=== PATIENT | female | born 1990 | race Caucasian/White ===

== ENCOUNTER 2018-06-20 03:13 | Inpatient (IN) | payer BC, SELFPAY ==
[2018-06-20] MEDS ORDERED: Bupivacaine 0.5% 20 ML, fentaNYL Citrate/PF 400 MCG in Sodium Chloride 0.9% 72 ML EPIDURAL SCH (03:45)
[2018-06-20] MEDS ORDERED: DISCONTINUE ALL PREVIOUS NARCOTICS FS SCH (03:45)
[2018-06-20] MEDS ORDERED: Promethazine HCl 25 MG/ML VIAL IM PRN ×3 (03:56→12:53)
[2018-06-20] MEDS ORDERED: Ondansetron HCl/PF 4 MG/2 ML Vial IVP PRN ×4 (03:56→12:54)
[2018-06-20] MEDS ORDERED: Acetaminophen 500 MG TAB PO PRN (03:56)
[2018-06-20] MEDS ORDERED: Misoprostol 200 MCG TAB RC PRN (04:00)
[2018-06-20] MEDS ORDERED: Carboprost 250 MCG/ML AMP IM PRN (04:00)
[2018-06-20] MEDS ORDERED: NS w/ Oxytocin 10 units 500 ML IV SCH ×2 (04:00)
[2018-06-20] MEDS ORDERED: NS / Oxytocin 40 units/1000ml 1,000 ML IV SCH (04:00)
[2018-06-20] MEDS ORDERED: Lidocaine 1% (PF) 30 ML VIAL SC PRN (04:00)
[2018-06-20] MEDS ORDERED: Ibuprofen 800 MG TAB PO PRN ×2 (04:00→13:12)
[2018-06-20] MEDS ORDERED: Penicillin G Potassium 5 MILL.UNITS in Sodium Chloride 0.9% 100 ML IVPB SCH (04:00)
[2018-06-20] MEDS ORDERED: Methylergonovine 0.2 MG/ML VIAL IM PRN (04:00)
[2018-06-20 04:17] VITALS: BMI 29.6
[2018-06-20] MEDS: Lactated Ringer's 1,000 ML IV SCH ×2 (04:30→12:02)
[2018-06-20 04:45] LABS: Hemoglobin 12.6 g/dL (12.0-16.0); Mean Corpuscular Hemoglobin 31.9 pg (27.0-31.0); Mean Platelet Volume 7.9 fL (7.4-10.4); Platelet Count 240 thou/uL (130-400); RBC Distribution Width 12.1 % (11.5-14.5); Red Blood Cell (RBC) Count 3.93 mill/uL (4.20-5.40); White Blood Cell (WBC) Count 18.1 thou/uL (4.8-10.8)
[2018-06-20 05:14] LABS: HBSAg Index 0.16 S/CO (0-0.99); Hep B Surf Ag Non-Reactive S/CO (NonReactive)
[2018-06-20] MEDS ORDERED: Terbutaline Sulfate 1 MG/ML VIAL ONE (05:39)
[2018-06-20] MEDS ORDERED: Lactated Ringer's 500 ML IV PRN (05:42)
[2018-06-20] MEDS ORDERED: Eucerin (Mineral Oil/Petrolatum,White) 30 gm Jar TOP PRN ×2 (05:42→12:53)
[2018-06-20] MEDS ORDERED: ePHEDrine/0.9% NaCl/PF SYRINGE 50 mg/10 ml SLOW IVP PRN (05:42)
[2018-06-20] MEDS ORDERED: Naloxone HCl 0.4 mg/ml Vial IVP PRN ×4 (05:42→12:53)
[2018-06-20] MEDS ORDERED: diphenhydrAMINE 50 MG/ML VIAL IVP PRN ×2 (05:42→12:53)
[2018-06-20] MEDS ORDERED: Acetaminophen 325 MG TAB PO PRN ×2 (05:42→14:00)
[2018-06-20] MEDS ORDERED: Communication Order-Pharmacy FS SCH ×2 (05:45→13:00)
[2018-06-20] MEDS ORDERED: fentaNYL Citrate/PF 400 MCG, Bupivacaine 0.5% 20 ML in Sodium Chloride 0.9% 72 ML EPIDURAL SCH (05:45)
[2018-06-20] MEDS: Penicillin G 2.5 MILL.units 50 ML IVPB SCH ×2 (08:44→16:05)
[2018-06-20] MEDS ORDERED: NS / Oxytocin 40 units/1000ml 1,000 ML ONE (09:36)
[2018-06-20] MEDS ORDERED: Lidocaine 2% PF 5 ML VIAL ONE (11:11)
[2018-06-20] MEDS ORDERED: Bupivacaine PF 0.5% 30 ML VIAL ONE (11:11)
--- NOTE | 2018-06-20 11:34 | PDOC.EVN ---
Event Note - Event Note Event Note: AROM with FSE at 1040. Clear fluid. Baby tolerated well. FSE placed. IUPC placed without difficulty. FWB reassuring at this time, no further decelerations seen. Case discussed with Dr. Loera, OB hospitalist. Given the current tracing and contraction pattern we will try low dose augmentation with pitocin and see how baby tolerates that. Right now, CTX are 10-15 minutes apart but lasting 3-4 minutes each. The hope with pitocin is that we will achieve a better pattern and have more effective cervical change. FHT tracing is category II at this time. Continue internal monitors.
[2018-06-20] MEDS ORDERED: CEFAZOLIN/Water 2 GM/20 ML SYRINGE ONE (11:55)
[2018-06-20] MEDS ORDERED: Bicitra 30 ML UDCUP ONE (11:55)
--- NOTE | 2018-06-20 12:05 | PDOC.EVN ---
Event Note - Event Note Event Note: PREOP CS NOTE DICTATED SX: Non-reassuring FHR tracing (Cat 3). For Primary CS
[2018-06-20] MEDS ORDERED: Lidocaine 2% PF Inj 2 ML VIAL ONE ×5 (12:09→12:12)
[2018-06-20] MEDS ORDERED: Lidocaine 1% PF 5 ML VIAL ONE (12:11)
[2018-06-20] MEDS ORDERED: Bupivacaine 0.5% 10 ML VIAL ONE (12:13)
[2018-06-20] MEDS ORDERED: NIFEdipine 10 MG CAP ONE (12:13)
[2018-06-20] MEDS ORDERED: Ondansetron HCl/PF 4 MG/2 ML Vial ONE ×2 (12:17→15:15)
--- NOTE | 2018-06-20 12:20 | PRG ---
DATE OF SERVICE: 06/20/2018 TIME OF EVALUATION: 11:50-12:00 noon. PREOPERATIVE NOTE: In brief, I have been watching this patient's electronic monitor along with Dr. Gordo rowell ce about 10:30 this morning. This patient is now at 8 cm dilation/100 percent effacement/about -1 to 0 station. She was called 6 cm at about 5:30 this morning. This patient is a patient of Dr. Jameson. At about 10:30 this morning, me and Dr. Jameson evaluated the patient strip together and we found a tess nge from moderate variability to periods of minimum variability with the possibility of some late occ urring decelerations. However, she was not adequately simba and after discussion with Dr. Jameson , my plan of care included placing a scalp electrode and IUPC to better track of contraction pa ttern to see the relationship to the decelerations. This was done at around 10:30 or so this m soumya. Since that time, due to the patient's continued lack of contractions, Pitocin was begun. Pi tocin also function as a contraction stress test to see if the baby could tolerate further labor prog ress. We have now concluded that there is recurrent late deceleration and there is intol erance to contractions. I have diagnosed nonreassuring heart rate due to a category 2, progres sing to a category 3 strip (minimal variability with late decelerations). I have discussed this with the patient, her partner, and Dr. Jameson all at the patient's bedside. All questions were answered. The patient has a labor epidural in place. Anesthesia has been notified and we are planning on a C-s ection within the next 15 minutes. We have also ordered Pitocin to stop and are giving IV hydration as a fluid bolus.
[2018-06-20] MEDS ORDERED: Azithromycin 500 MG in Sodium Chloride 0.9% 250 ML 250 ML IVPB SCH (12:30)
[2018-06-20] MEDS ORDERED: Oxytocin 10 UNITS/ML VIAL ONE (12:30)
[2018-06-20] MEDS ORDERED: Morphine PF 1 MG/ML SYR ONE (12:31)
[2018-06-20] MEDS ORDERED: Ketorolac Tromethamine 30 MG/ML VIAL IVP PRN (12:53)
[2018-06-20] MEDS ORDERED: Naloxone HCl 0.4 mg/ml Vial IV PRN (12:53)
[2018-06-20] MEDS ORDERED: Promethazine HCl 25 MG SUPP PR PRN (12:53)
[2018-06-20] MEDS ORDERED: HYDROmorphone 2 MG/ML VIAL SLOW IVP PRN (12:54)
[2018-06-20] MEDS ORDERED: Ketorolac Tromethamine 30 MG/ML VIAL IVP SCH (13:00)
[2018-06-20] MEDS ORDERED: Fentanyl 100 MCG/2 ML VIAL ONE (13:13)
[2018-06-20 13:15] LABS: Actual Bicarbonate (HCO3a) 24.7 mEq/L (22-28); Analyzer IN Cardio OR; Base Excess (BEa) -0.4 mEq/L (-2.0 to +3.0)
[2018-06-20] MEDS ORDERED: Ketorolac Tromethamine 30 MG/ML VIAL ONE ×2 (13:19→15:15)
--- NOTE | 2018-06-20 13:20 | PDOC.EVN ---
Event Note - Event Note Event Note: Postop Umbilical arterial Gas check: no evidence metabolic acidosis, BE -.4, PH >7.2
--- NOTE | 2018-06-20 13:49 | OP ---
DATE OF PROCEDURE: 06/20/2018 TIME OF SURGERY: Was roughly around 12:40 (see delivery record for true delivery time). SECTION NOTE PREOPERATIVE DIAGNOSIS: Non-reassuring heart rate tracing with class 3 strip at 8 cm. POSTOPERATIVE DIAGNOSES: 1. Non-reassuring heart rate tracing with class 3 strip at 8 cm. 2. Status post low-transverse -section. PROCEDURE: Primary low-transverse section via Pfannenstiel skin incision. Uterus was closed in a 2-layer closure. SURGEON: Shaun Loera M.D. ICT CUSTOMER SUPPORT OFFICER: Gordo Jameson M.D. ANESTHESIA: Labor epidural and local infiltration at the time of skin closure. ANTIBIOTICS: Ancef per routine and 500 mg Zithromax. FINDINGS: 1. Baby was born in the cephalic presentation with spontaneous cry. 2. Body cord x1 that was loose. 3. Three-vessel cord. 4. Baby had spontaneous cry at delivery with good tone, but then had difficulty maintaining saturations during the period of observation with Neonatology in the room. 5. Hemostasis post-procedure. 6. Normal tubes and ovaries bilaterally. 7. The umbilical arterial gas was greater than 7.2 with a base excess of less than -1 with the results coming at the end of the surgery. ESTIMATED BLOOD LOSS: My estimated blood loss was about 600, the quantitative blood loss is still pending. COUNTS: Correct. COMPLICATIONS: None. IV FLUIDS: Per Anesthesia record (crystalloid). URINE OUTPUT: (Please see anesthesia record). DISPOSITION: To recovery room in good and stable condition. INDICATION: This is a patient that we have been observing the labor progress and found persistent non-reassuring heart rate tracing with heart rate of around 130s-140s, but with minimal variability and late decelerations. TECHNIQUE: After proper informed consent was explained to the patient, she was transported to the Labor and Delivery operating room where she was dosed of her labor epidural anesthetic. Patient's abdomen was prepped and draped in the usual sterile fashion. A Pfannenstiel skin incision was made about 2 fingerbreadths above the pubic symphysis. Bovie cautery was used to dissect the subcutaneous tissue down to the level of the fascia. Fascia was identified , cleaned off of any overlying fat, and entered in a transverse fashion. Next, rectus muscles were off the fascia, both superiorly and inferiorly off the midline, with Vivar scissors. Care was taken to avoid the underlying structures. Next, the rectus muscles were out laterally from the midline and the underlying peritoneum was elevated with hemostats. The peritoneum was entered by blunt dissection without damage to the underlying structures. An Graeme O retractor was placed into the wound for circumferential retraction. A low transverse hysterotomy was made that is without creation of a bladder flap. Baby was noted to be in a cephalic presentation and was delivered in an atraumatic fashion without difficulty. One body cord was noted, which was loose. The baby was given a delayed cord clamp of about 30 seconds, at which point the cord was doubly clamped, transected, and the baby was given to the NICU team present for evaluation. The placenta was gently massaged out of the uterine cavity and it was intact. The uterine cavity was curettaged of any retained products of conception and none were found. The uterus was closed in 2 layers, using #1 Vicryl in a running-locking fashion with the first layer and a running nonlocking fashion with a second imbricating layer. After confirming hemostasis, copious irrigation was then performed verifying hemostasis. The parietal peritoneum and rectus muscles were then reapproximated in the midline using 2-0 chromic, after confirming that all counts were correct. This was with a series of figure -of-eight loose stitches. After confirming that there was hemostasis underneath the fascial edge, the fascial edge was closed with 0 PDS suture in one continuous running nonlocking fashion. Subcutaneous tissue was copiously irrigated, and as it was less than 2 cm, the subcutaneous tissue was not closed. The subcuticular area was closed with 4-0 Monocryl in a running subcuticular stitch. Dermabond was placed over the skin for an adhesive barrier placement. No complications were found, and at the end of the procedure about 10 mL of 0.5 % Marcaine without epinephrine was placed around the incision for patient comfort. DAVID
[2018-06-20] MEDS ORDERED: Bisacodyl 10 MG SUPP PR PRN (14:00)
[2018-06-20] MEDS ORDERED: diphenhydrAMINE 25 MG CAP PO PRN (14:00)
[2018-06-20] MEDS ORDERED: Lanolin Ointment 7 GM TUBE TOP PRN (14:00)
[2018-06-20] MEDS ORDERED: Meperidine HCl/PF 25 MG/ML VIAL ONE ×2 (14:31→15:19)
[2018-06-20] MEDS: Meperidine HCl/PF 25 MG/ML VIAL SLOW IVP PRN ×2 (14:35→15:22)
[2018-06-20] MEDS ORDERED: Lidocaine 2% MPF 10 ML AMP (For Epidural Use) ONE (15:15)
[2018-06-20] MEDS: Ibuprofen 800 MG TAB PO SCH ×2 (16:05→21:43)
[2018-06-20] MEDS: Docusate Calcium (SURFAK) 240 MG CAP PO SCH (20:26)
[2018-06-21] MEDS ORDERED: HYDROcodone/Acetaminophen 5/325 mg Tablet PO PRN (01:00)
[2018-06-21] MEDS: Simethicone Chewable 80 MG TAB PO PRN (04:28)
[2018-06-21 05:45] LABS: Hemoglobin 9.7 g/dL (12.0-16.0); Mean Corpuscular HGB CONC 33.1 g/dL (32.0-36.0); Mean Corpuscular Hemoglobin 31.4 pg (27.0-31.0); Mean Corpuscular Volume 94.9 fL (78.0-98.0); Platelet Count 203 thou/uL (130-400); RBC Distribution Width 11.9 % (11.5-14.5); White Blood Cell (WBC) Count 13.3 thou/uL (4.8-10.8)
[2018-06-21] MEDS: Ibuprofen 800 MG TAB PO SCH ×3 (07:33→21:21)
[2018-06-21] MEDS: Docusate Calcium (SURFAK) 240 MG CAP PO SCH ×2 (07:34→20:20)
--- NOTE | 2018-06-21 09:00 | PDOC.PP ---
Post Progress Note Post Day #: 1 Subjective: Pain controlled. Monroy out this AM. Voided. Tolerated clear liquids, no solids yet. for the first time this AM. PO intake tolerated: yes Flatus: yes Ambulation: yes Vital Signs (12 hours) Temp Pulse Resp BP 06/21/18 07:40 98.2 F 80 18 124/77 06/21/18 04:00 98.3 F 76 20 120/84 06/21/18 00:00 98.3 F 85 20 126/71 Weight Weight 162 lb - Physical Examination General: NAD Cardiovascular: no m/r/g, RRR Respiratory: clear to auscultation bilaterally, non-labored breathing Abdominal: + bowel sounds, lochia, no distention, appropriately TTP Skin: CS incision dry & intact, no rash Psychiatric: A&Ox3, normal affect Result Diagrams: 06/21/18 05:15 Additional Labs: Post Labs Blood Type O POSITIVE 06/20/18 04:14 Hep Bs Antigen Non-Reactive S/CO (NonReactive) 06/20/18 04:01 (1) delivery delivered Code(s): O82 - ENCOUNTER FOR DELIVERY WITHOUT INDICATION Status: Acute - Assessment/Plan Routine post op care. Doing well on PP day #1. Ambulate. Pain control. Work on .
[2018-06-21] MEDS: HYDROcodone/Acetaminophen 5/325 mg Tablet PO PRN ×2 (14:51→20:21)
[2018-06-22] MEDS: HYDROcodone/Acetaminophen 5/325 mg Tablet PO PRN ×6 (00:18→22:51)
[2018-06-22] MEDS: Simethicone Chewable 80 MG TAB PO PRN (00:18)
[2018-06-22] MEDS: Ibuprofen 800 MG TAB PO SCH ×3 (05:53→22:14)
[2018-06-22] MEDS: Docusate Calcium (SURFAK) 240 MG CAP PO SCH ×2 (08:35→20:50)
--- NOTE | 2018-06-22 13:14 | PDOC.PP ---
Post Progress Note Post Day #: 2 Subjective: Pain controlled. Ambulating. well. PO intake tolerated: yes Flatus: yes Ambulation: yes Vital Signs (12 hours) Temp Pulse Resp BP 06/22/18 12:00 97.9 F 73 18 06/22/18 11:59 97.9 F 73 18 132/77 06/22/18 07:30 97.8 F 74 18 112/75 06/22/18 04:00 98.0 F 75 20 122/77 Weight Weight 162 lb - Physical Examination General: NAD Cardiovascular: no m/r/g, RRR Respiratory: clear to auscultation bilaterally, non-labored breathing Abdominal: + bowel sounds, lochia, no distention, appropriately TTP Skin: CS incision dry & intact, no rash Psychiatric: A&Ox3, normal affect Result Diagrams: 06/21/18 05:15 Additional Labs: Post Labs Blood Type O POSITIVE 06/20/18 04:14 Hep Bs Antigen Non-Reactive S/CO (NonReactive) 06/20/18 04:01 (1) delivery delivered Code(s): O82 - ENCOUNTER FOR DELIVERY WITHOUT INDICATION Status: Acute - Assessment/Plan Routine PP care D/C in AM
[2018-06-23] MEDS: Ibuprofen 800 MG TAB PO SCH (05:30)
[2018-06-23] MEDS: HYDROcodone/Acetaminophen 5/325 mg Tablet PO PRN ×2 (06:18→12:20)
[2018-06-23 07:48] VITALS: BP 124/78; TEMP 97.2
[2018-06-23] MEDS: Docusate Calcium (SURFAK) 240 MG CAP PO SCH (09:02)
--- NOTE | 2018-06-23 11:35 | PDOC.PP ---
Post Progress Note Post Day #: 3 Subjective: Doing well, ready to go home PO intake tolerated: yes Flatus: yes Ambulation: yes Vital Signs (12 hours) Temp Pulse Resp BP 06/23/18 08:15 97.2 F L 76 20 06/23/18 07:47 97.2 F L 76 20 124/78 06/23/18 04:00 98.0 F 91 18 06/22/18 23:40 98.0 F 91 18 Weight Weight 162 lb - Physical Examination General: NAD Cardiovascular: no m/r/g, RRR Respiratory: clear to auscultation bilaterally, non-labored breathing Abdominal: + bowel sounds, lochia, no distention, appropriately TTP Skin: CS incision dry & intact, no rash Psychiatric: A&Ox3, normal affect Result Diagrams: 06/21/18 05:15 Additional Labs: Post Labs Blood Type O POSITIVE 06/20/18 04:14 Hep Bs Antigen Non-Reactive S/CO (NonReactive) 06/20/18 04:01 (1) delivery delivered Code(s): O82 - ENCOUNTER FOR DELIVERY WITHOUT INDICATION Status: Acute - Assessment/Plan Routine PP care D/C home F/U in 2 weeks
== END 2018-06-23 12:30 | disposition home or self-care (01) | DRG 766 ==
LOC: L&D/OP 03:13 → L&D 03:45 → 3SW 16:45
PROVIDERS: ADMIT Family Medicine; ATTEND Family Medicine
PROC: 10D00Z1 Extraction of Products of Conception, Low, Open Approach (ICD-10-PCS; principal; 2018-06-20)
DX: O76 Abnormality in fetal heart rate and rhythm complicating labor and delivery (principal); Z37.0 Single live birth; Z3A.39 39 weeks gestation of pregnancy
CPT/HCPCS: 36415; 51702; 82805; 85027; 86850; 86900; 86901; 87340; 88307; 99283; 99285; J0456; J1885; J2001; J2175; J2274; J2405; J2540; J2590; J3010; J3105; J3490; J7050; S0020

== ENCOUNTER 2020-09-30 15:10 | Inpatient (IN) | payer BC ==
[~2020-09-30 15:10] MED LIST: Bupivacaine/Epinephrine 0.25% 30 ML VIAL ONE
[2020-09-30 15:42] VITALS: BMI 28.3
[2020-09-30] MEDS ORDERED: Ibuprofen 800 MG TAB PO PRN (15:55)
[2020-09-30] MEDS ORDERED: NS / Oxytocin 40 units/1000ml 1,000 ML IV PRN (15:55)
[2020-09-30] MEDS ORDERED: Lidocaine 1% (PF) 30 ML VIAL SC PRN (15:55)
[2020-09-30] MEDS ORDERED: Butorphanol Tartrate 1 MG/ML VIAL SLOW IVP PRN (15:55)
[2020-09-30] MEDS ORDERED: Acetaminophen 500 MG TAB PO PRN (15:55)
[2020-09-30] MEDS ORDERED: Docusate 100 MG CAP PO PRN (15:55)
[2020-09-30] MEDS ORDERED: Ondansetron PF 4 MG/2 ML Vial IVP PRN (15:55)
[2020-09-30] MEDS ORDERED: Promethazine HCl 25 MG/ML VIAL IM PRN (15:55)
[2020-09-30] MEDS ORDERED: hydrALAZINE 20 MG/ML VIAL SLOW IVP PRN (15:55)
[2020-09-30 16:31] LABS: Hemoglobin 12.7 g/dL (12.0-16.0); Mean Corpuscular HGB CONC 34.9 g/dL (32.0-36.0); Mean Corpuscular Hemoglobin 32.9 pg (27.0-31.0); Mean Corpuscular Volume 94.3 fL (78.0-98.0); Mean Platelet Volume 8.7 fL (7.4-10.4); Platelet Count 243 thou/uL (130-400); RBC Distribution Width 11.6 % (11.5-14.5); Red Blood Cell (RBC) Count 3.86 mill/uL (4.20-5.40); White Blood Cell (WBC) Count 10.7 thou/uL (4.8-10.8)
--- NOTE | 2020-09-30 16:32 | PDOC.LDHP ---
Labor and Delivery H&P Chief complaint: loss of fluid HPI: 29 y/o at 39w4d, patient of Dr. Boland, presents after rupture at 0300 this am. 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 Denies VB, PIH sx, or UTI sx. +FM ROS neg for HEENT, CV, pulm, GI, , neuro, psych, skin, musculoskeletal, or constitutional symptoms other than mentioned above. OB History Details: 1 prior LTCS x 1 for [facility]RA Past Medical History: Anxiety Current medications: pre- vitamins, other (zoloft, allergy medication) Previous surgical history: low tranverse CS (x1) Allergies/Adverse Reactions: Allergies Allergy/AdvReac Type Severity Reaction Status Date / Time banana Allergy Verified 09/30/20 15:43 latex Allergy Hives Verified 09/30/20 15:43 melon Allergy Verified 09/30/20 15:43 Social history: none - Physical Exam Vital signs reviewed and normal: yes General: NAD, resting Lungs: nonlabored breathing Abdomen: gravid Extremeties: no edema FHT: category 1 (130s, mod variability, + accels, no decels) [place] contractions every: 6-8 mins - Vaginal Exam cm dilated: 2 Effacement: 50% Station: -2 - OB Labs Blood type: O RH: positive Antibody Screen: negative HIV: negative RPR: negative HEPSAg: negative 1 hour GCT: negative GBS: negative Rubella: immune - Assessment L&D Assessment: term rupture in membranes - Plan Plan: admit to L&D, cervical ripening, informed consent obtained -: Pt desires balloon over medication for cervical ripening. Will place once admitted.
[2020-09-30 17:08] LABS: Syphilis Antibody Nonreactive (Nonreactive); Syphilis Antibody Index 0.02 S/CO (<1.00 Non-Reactive)
--- NOTE | 2020-09-30 17:09 | PDOC.LDPN ---
Labor & Delivery Progress Note - Subjective Subjective: comfortable - Objective Vital signs reviewed and normal: yes General: NAD, resting Uterine fundus: non tender Dilation: 2 Effacement: 50% Station: -2 FHT: category 1 [place] contractions every: 6-8 mins -: Cook's balloon placed without difficulty. Inflated to 40/40, will increase incrementally.
[2020-09-30 17:17] LABS: HBSAg Index 0.13 S/CO (0-0.99); Hep B Surf Ag Non-Reactive S/CO (NonReactive)
[2020-09-30] MEDS: Lactated Ringer's 1,000 ML IV SCH (17:35)
[2020-10-01 00:04] LABS: SARS-CoV-2 MS2 Positive; SARS-CoV-2 N Gene Negative; SARS-CoV-2 S Gene Negative; SARS-CoV-2 by NAA Not Detected (NotDetected); SARS-CoV-2 orf1ab Negative
[2020-10-01] MEDS ORDERED: Fentanyl 4 mcg/Bup 0.1% Cadd 100 ML in Premix Bag 1 BAG EPIDURAL SCH (03:00)
[2020-10-01] MEDS ORDERED: Lactated Ringer's 500 ML IV PRN (03:45)
[2020-10-01] MEDS ORDERED: Promethazine HCl 25 MG/ML VIAL IM PRN ×2 (03:45→09:45)
[2020-10-01] MEDS ORDERED: ePHEDrine 50 MG/ML VIAL SLOW IVP PRN (03:45)
[2020-10-01] MEDS ORDERED: Communication Order-Pharmacy FS SCH ×2 (03:45→09:45)
[2020-10-01] MEDS ORDERED: Naloxone HCl 0.4 mg/ml Vial IVP PRN ×4 (03:45→09:45)
[2020-10-01] MEDS ORDERED: Fentanyl 4 mcg/Bupivacaine 0.1% Cassette 100 ML EPIDURAL SCH (03:45)
[2020-10-01] MEDS ORDERED: Ondansetron PF 4 MG/2 ML Vial IVP PRN ×2 (03:45→09:45)
[2020-10-01] MEDS ORDERED: Acetaminophen 325 MG TAB PO PRN ×2 (03:45→13:22)
[2020-10-01] MEDS ORDERED: diphenhydrAMINE 50 MG/ML VIAL IVP PRN ×2 (03:45→09:45)
[2020-10-01] MEDS: Lactated Ringer's 1,000 ML IV SCH ×2 (03:56→19:21)
--- NOTE | 2020-10-01 07:58 | PDOC.LDPN ---
Labor & Delivery Progress Note - Subjective Subjective: comfortable - Objective Vital signs reviewed and normal: yes General: resting Dilation: 6 Effacement: 90% Station: -1 FHT: late decelerations, variability present [place] contractions every: 7-9 IUPC placed: yes - Assessment (1) 39 weeks gestation of Code(s): Z3A.39 - 39 WEEKS GESTATION OF Current Visit: Yes Status: Acute (2) Prolonged rupture of membranes Code(s): O42.90 - CHRISTOPHER ROM, 7TH0 BETW RUPT & ONST LABR, UNSP WEEKS OF GEST Current Visit: Yes Status: Acute Plan: other -: At patient bedside, SVE w exam consistent w active laboring cervix. CTX are q 7-9 mins, IUP placed to confirm frequency and power. FHT w recurrent lates suspected prior to IUPC placed-reassuring between ctx. Will observe w IUPC and if lates continue (cannot augment labor) will plan for RCS. Pt and aware of plan of care.
[2020-10-01] MEDS ORDERED: NS w/ Oxytocin 30 units 500 ML ONE (08:07)
[2020-10-01] MEDS ORDERED: Bicitra 30 ML UDCUP ONE (08:18)
[2020-10-01] MEDS ORDERED: Azithromycin 500 MG VIAL ONE (08:42)
[2020-10-01] MEDS ORDERED: Oxytocin 10 UNITS/ML VIAL ONE (08:52)
[2020-10-01] MEDS ORDERED: Morphine PF 10 MG/10 ML VIAL ONE (08:52)
[2020-10-01] MEDS ORDERED: PHENYLEPHRINE-NS 100 MCG/ML 10 ML SYRINGE ONE (09:19)
[2020-10-01] MEDS ORDERED: Midazolam HCl 2 mg/2 ml Vial ONE (09:30)
[2020-10-01] MEDS ORDERED: Meperidine HCl/PF 25 MG/ML VIAL SLOW IVP PRN (09:45)
[2020-10-01] MEDS ORDERED: Ketorolac Tromethamine 30 MG/ML VIAL IVP SCH (09:45)
[2020-10-01] MEDS ORDERED: L&D-Morphine 4 MG/ML VIAL SLOW IVP PRN (09:45)
[2020-10-01] MEDS ORDERED: Ondansetron HCl/PF 4 MG/2 ML Vial IVP PRN (09:45)
[2020-10-01] MEDS ORDERED: Ketorolac Tromethamine 30 MG/ML VIAL IVP PRN (09:45)
[2020-10-01] MEDS ORDERED: Azithromycin 500 MG in Sodium Chloride 0.9% 250 ML 250 ML IVPB SCH (09:45)
[2020-10-01] MEDS ORDERED: Naloxone HCl 0.4 mg/ml Vial IV PRN (09:45)
[2020-10-01] MEDS ORDERED: HYDROmorphone 2 MG/ML VIAL SLOW IVP PRN (09:45)
[2020-10-01] MEDS ORDERED: Promethazine HCl 25 MG SUPP PR PRN (09:45)
[2020-10-01] MEDS ORDERED: Ondansetron PF 4 MG/2 ML Vial ONE (10:16)
--- NOTE | 2020-10-01 10:37 | OP ---
DATE OF PROCEDURE: 10/01/2020 PREOPERATIVE DIAGNOSES: 1. Previous section. 2. 6 cm with non-reassuring heart tones. POSTOPERATIVE DIAGNOSES: 1. Previous section. 2. 6 cm with non-reassuring heart tones. PROCEDURE PERFORMED: Repeat low-transverse section. ACCOUNT AUDITOR: Lee Ann Puga, guardian family member. ANESTHESIA: Epidural. COMPLICATIONS: None. ESTIMATED BLOOD LOSS: 600 mL. QUANTITATIVE BLOOD LOSS: Pending. OPERATIVE FINDINGS: 1. Low-transverse hysterotomy without extension. 2. Normal-appearing uterus, tubes, and ovaries bilaterally. 3. Vigorous female infant at the bed with Apgars and weight pending at the time of dictation, transferred to NICU for care. 4. Fundus firm after delivery of the placenta. 5. Surgical sites hemostatic. INDICATIONS: Ms. Ana Lugo presented on 09/30/2020 with rupture of membranes in latent labor. She was managed under the OB hospitalist service, at which time a Cook balloon was placed. This morning, when I assumed her care at approximately 7:30, she had been noted to have very irregular contractions every 7 to 10 minutes and late decelerations with most contractions, but moderate variability. At that time, the patient was counseled, resuscitative measures were performed and decision for section was made. DESCRIPTION OF PROCEDURE: The patient was then taken back to the OR with IV fluids running. Once she was in the OR, she was placed in dorsal supine position. A Monroy catheter and epidural catheter were previously placed. The abdomen was prepped and draped in normal fashion for section. 2 g of Ancef and 500 mg of azithromycin were administered through her IV. A Pfannenstiel skin incision was made with a scalpel. The skin incision was carried down through subcutaneous layer to the fascia. Once the fascia was reached, it was incised in the midline and extended superolaterally using curved Vivar scissors. Vivian clamps were placed at the superior border of the fascia, which was sharply and bluntly dissected off the rectus abdominis muscles. In similar fashion, they were placed at the inferior border of the fascia, which was dissected down towards the pubic symphysis. The rectus muscles and peritoneum were bluntly entered and stretched in the midline. An Graeme O retractor was placed into the peritoneal cavity for retraction, visualization, and protection of the wound. A bladder flap was created using Metzenbaum scissors and the bladder was dissected away from the planned hysterotomy site. A low-transverse hysterotomy was made with a scalpel. Clear fluid was noted. A Block maneuver was used to extend the incision. The was then delivered from vertex presentation through the hysterotomy. The nose and mouth were suctioned. Delayed cord clamping was achieved with the infant vigorously crying at the bedside. The cord was then doubly clamped, cut, and the was handed off to special care nurses in attendance. Cord blood was collected. The placenta was delivered. Uterus was exteriorized, massaged to firm, and cleared of clot and debris with a clean dry sponge. The uterus was returned to the abdominal cavity. The hysterotomy was inspected and no extension was noted. The hysterotomy was closed with Monocryl suture in a running locked fashion. A second imbricating layer was placed for hemostasis and moravian of anatomy. After the second layer closure was complete, the hysterotomy was inspected and no bleeding was noted. The hysterotomy and paracolic gutters were suctioned dried after irrigation was placed. The surgical sites were inspected again with no areas of bleeding noted. The first count was correct. The Graeme O retractor was removed from the peritoneal cavity. The rectus muscle and fascia were inspected and any small areas of bleeding were controlled with Bovie cauterization. The rectus fascia was then reapproximated from corner to corner in a running fashion. The subcutaneous tissue was irrigated and dry. No areas of bleeding were noted. Plain gut interrupted sutures were placed in the subcutaneous layer. The subcuticular layer was closed with 4-0 Monocryl and dressed with Dermabond dressing. The uterine fundus palpated firm at the end of the case. The final count was correct. The patient tolerated the procedure well. There were no complications. Job ID: [id number]
[2020-10-01] MEDS ORDERED: NS / Oxytocin 40 units/1000ml 1,000 ML IV SCH (13:22)
[2020-10-01] MEDS ORDERED: Lanolin Ointment 7 GM TUBE TOP PRN (13:22)
[2020-10-01] MEDS ORDERED: hydrALAZINE 20 MG/ML VIAL SLOW IVP PRN (13:22)
[2020-10-01] MEDS ORDERED: HYDROcodone/Acetaminophen 5/325 mg Tablet PO PRN (13:22)
[2020-10-01] MEDS ORDERED: Bisacodyl 10 MG SUPP PR PRN (13:22)
[2020-10-01] MEDS ORDERED: diphenhydrAMINE 25 MG CAP PO PRN (13:22)
[2020-10-01] MEDS ORDERED: Misoprostol 200 MCG TAB PR PRN (13:22)
[2020-10-01] MEDS ORDERED: Adacel (T-DAP) 0.5 ML SYRINGE IM ONE (15:00)
[2020-10-01] MEDS: Simethicone Chewable 80 MG TAB PO PRN ×2 (18:27→19:40)
[2020-10-01] MEDS: Ferrous Sulfate 325 MG TAB PO SCH (19:22)
[2020-10-02 06:14] LABS: Hemoglobin 11.3 g/dL (12.0-16.0); Mean Corpuscular Volume 97.3 fL (78.0-98.0); Mean Platelet Volume 8.2 fL (7.4-10.4); Platelet Count 210 thou/uL (130-400); RBC Distribution Width 11.7 % (11.5-14.5); Red Blood Cell (RBC) Count 3.41 mill/uL (4.20-5.40); White Blood Cell (WBC) Count 13.9 thou/uL (4.8-10.8)
--- NOTE | 2020-10-02 08:13 | PDOC.PP ---
Post Progress Note Post Day #: 1 Subjective: pain controlled w PO meds, ready for regular diet, isai clears last night PO intake tolerated: yes Flatus: yes Ambulation: yes Vital Signs (12 hours) Temp Pulse Resp BP 10/02/20 04:29 97.9 F 70 16 114/66 10/01/20 23:04 98.2 F 72 16 112/84 Weight Weight 155 lb - Physical Examination General: NAD Respiratory: non-labored breathing Abdominal: no distention Skin: CS incision dry & intact, no rash Neurological: no gross focal deficits Psychiatric: A&Ox3, normal affect Result Diagrams: 10/02/20 06:02 Additional Labs: Post Labs Hep Bs Antigen Non-Reactive S/CO (NonReactive) 09/30/20 16:13 Blood Type O POSITIVE 09/30/20 16:13 (1) 39 weeks gestation of Code(s): Z3A.39 - 39 WEEKS GESTATION OF Status: Acute (2) Prolonged rupture of membranes Code(s): O42.90 - CHRISTOPHER ROM, 7TH0 BETW RUPT & ONST LABR, UNSP WEEKS OF GEST Status: Acute - Assessment/Plan POD1 doing well, plan to increase ambulation, shower and advance to regular diet. Seeing baby in NICU and pumping.
[2020-10-02] MEDS: Ferrous Sulfate 325 MG TAB PO SCH ×2 (09:52→22:26)
[2020-10-02] MEDS: Prenatal Vitamin 1 TAB PO SCH (09:52)
[2020-10-02] MEDS: Simethicone Chewable 80 MG TAB PO PRN ×3 (10:10→22:27)
[2020-10-02] MEDS: Ibuprofen 800 MG TAB PO SCH ×2 (14:13→22:26)
[2020-10-03] MEDS: Ibuprofen 800 MG TAB PO SCH ×3 (06:20→21:05)
[2020-10-03] MEDS: Ferrous Sulfate 325 MG TAB PO SCH (07:14)
--- NOTE | 2020-10-03 08:19 | PDOC.PP ---
Post Progress Note Post Day #: 2 Subjective: doing well, no concerns, visiting baby in the NICU, minimal pain PO intake tolerated: yes Flatus: yes Ambulation: yes Vital Signs (12 hours) Temp Pulse Resp BP Pulse Ox 10/03/20 07:56 98.1 F 71 20 113/76 98 10/02/20 22:30 98.1 F 83 20 115/70 Weight Weight 155 lb - Physical Examination General: NAD Respiratory: non-labored breathing Skin: CS incision dry & intact Neurological: no gross focal deficits Psychiatric: A&Ox3, normal affect Result Diagrams: 10/02/20 06:02 Additional Labs: Post Labs Hep Bs Antigen Non-Reactive S/CO (NonReactive) 09/30/20 16:13 Blood Type O POSITIVE 09/30/20 16:13 (1) 39 weeks gestation of Code(s): Z3A.39 - 39 WEEKS GESTATION OF Status: Acute (2) Prolonged rupture of membranes Code(s): O42.90 - CHRISTOPHER ROM, 7TH0 BETW RUPT & ONST LABR, UNSP WEEKS OF GEST Status: Acute - Assessment/Plan POD2 doing well, will stay inpatient with baby in NICU, pumping and giving expressed milk. Poss B and B tomorrow.
[2020-10-03] MEDS: Prenatal Vitamin 1 TAB PO SCH (09:07)
[2020-10-03] MEDS: Simethicone Chewable 80 MG TAB PO PRN (21:05)
[2020-10-04] MEDS: Ibuprofen 800 MG TAB PO SCH ×2 (06:04→13:58)
--- NOTE | 2020-10-04 07:49 | PDOC.PP ---
Post Progress Note Post Day #: 3 Subjective: Doing well, but tearful about possibly leaving baby here. Pain controlled, ambulating, tolerating PO. PO intake tolerated: yes Flatus: yes Ambulation: yes Weight Weight 155 lb - Physical Examination General: NAD Respiratory: non-labored breathing Abdominal: lochia (normal), no distention, appropriately TTP Fundus firm & at: below umbilicus Skin: CS incision dry & intact Neurological: no gross focal deficits Psychiatric: A&Ox3, normal affect Result Diagrams: 10/02/20 06:02 Additional Labs: Post Labs Hep Bs Antigen Non-Reactive S/CO (NonReactive) 09/30/20 16:13 Blood Type O POSITIVE 09/30/20 16:13 (1) Prolonged rupture of membranes Code(s): O42.90 - CHRISTOPHER ROM, 7TH0 BETW RUPT & ONST LABR, UNSP WEEKS OF GEST Status: Acute (2) delivery delivered Code(s): O82 - ENCOUNTER FOR DELIVERY WITHOUT INDICATION Status: Acute (3) Non-reassuring cardiotocographic tracing Code(s): O76 - ABNLT IN HEART RATE AND RHYTHM COMP LABOR AND DELIVERY Status: Acute - Assessment/Plan Possible d/c later today vs tomorrow. Will notify nurse later this afternoon once she knows how the baby is doing.
[2020-10-04 07:57] VITALS: BP 129/76; TEMP 98
[2020-10-04] MEDS: Ferrous Sulfate 325 MG TAB PO SCH (08:48)
[2020-10-04] MEDS: Prenatal Vitamin 1 TAB PO SCH (08:48)
--- NOTE | 2020-10-04 12:19 | PDOC.EVN ---
Event Note - Event Note Event Note: Requesting DC to B&B. VSS AF Orders placed. RTC with Dr. Boland as directed.
== END 2020-10-04 14:57 | disposition home or self-care (01) | DRG 788 ==
LOC: L&D/OP 15:10 → L&D 15:55 → 3SE 10-01 12:50
PROVIDERS: ADMIT Obstetrics & Gynecology; ATTEND Obstetrics & Gynecology
PROC: 10D00Z1 Extraction of Products of Conception, Low, Open Approach (ICD-10-PCS; principal; 2020-10-01)
DX: O34.211 Maternal care for low transverse scar from previous cesarean delivery (principal); O76 Abnormality in fetal heart rate and rhythm complicating labor and delivery; Z20.828 Contact with and (suspected) exposure to other viral communicable diseases; O99.344 Other mental disorders complicating childbirth; F41.9 Anxiety disorder, unspecified; Z3A.39 39 weeks gestation of pregnancy; Z37.0 Single live birth
CPT/HCPCS: 36415; 51702; 85027; 86780; 86850; 86900; 86901; 87340; 87635; J1885; J2250; J2270; J2405; U0003